=== PATIENT | female | born 1995 | race Caucasian/White ===

== ENCOUNTER 2021-02-21 15:44 | Emergency (ER) | payer OTHER ==
[~2021-02-21] VITALS: Ht 152.4 cm; Wt 56.7 kg
[~2021-02-21 15:44] MED LIST: NAPROSYN500 M1 PO
[2021-02-21 16:25] VITALS: BP 109/64
== END 2021-02-21 17:24 | disposition home or self-care (01) ==
LOC: ER 15:44
DX: R51.9 Headache, unspecified (principal); Z20.822 Contact with and (suspected) exposure to COVID-19; F17.210 Nicotine dependence, cigarettes, uncomplicated; Z79.1 Long term (current) use of non-steroidal anti-inflammatories (NSAID)